=== PATIENT | male | born 1980 | race Caucasian/White ===

== ENCOUNTER → 2020-09-15 08:25 | Outpatient (CLI) | payer BC, SELFPAY ==
[2020-09-15 09:08] LABS: Basophils # 0.1 K/mm3 (0-0.2); Basophils % 1.2 % (0.1-2.0); Eosinophils # 0.2 K/mm3 (0.0-0.4); Eosinophils % 2.7 % (0.1-12.0); Hematocrit 48.6 % (42.0-52.0); Hemoglobin 16.2 g/dL (14.1-18.0); Lymphocytes # 1.2 K/mm3 (0.7-4.5); Lymphocytes % 20.5 % (10-50); Mean Corpuscular HGB Conc 33.3 g/dL (31.8-35.4); Mean Corpuscular Volume 95.9 fl (80-94); Mean Platelet Volume 8.4 fl (7.4-10.4); Monocytes # 0.4 K/mm3 (0.1-1.0); Monocytes % 6.8 % (1.7-9.3); Neutrophils # 3.9 K/mm3 (1.8-7.8); Neutrophils % 68.8 % (37.0-80.0); Platelet Count 175 K/mm3 (142-424); Red Blood Count 5.07 M/mm3 (4.60-6.20); Red Cell Distribution Width 12.7 % (11.5-17.5); White Blood Count 5.6 K/mm3 (4.8-10.8)
[2020-09-15 10:20] LABS: Alanine Aminotransferase 22 U/L (12-78); Albumin Level 4.5 g/dl (3.5-5.0); Albumin/Globulin Ratio 1.9 (1.1-1.8); Alkaline Phosphatase 71 U/L (38-126); Anion Gap 11.7 mEq/L (5-15); Aspartate Amino Transferase 23 U/L (17-59); Bilirubin,Total 1.2 mg/dl (0.2-1.3); Blood Urea Nitrogen 19 mg/dl (9-20); Calcium 9.6 mg/dl (8.4-10.2); Carbon Dioxide 32 mmol/L (22.0-30.0); Chloride 102 mmol/L (98-107); Chol/HDL Ratio 3.7 (1-3.5); Cholesterol 187 mg/dl (140-200); Estimated Glomerular Filt Rate 75 ml/min (>60); GFR (African American) 90 ML/MIN (>60); Globulin 2.4 g/dL (1.3-3.2); Glucose 76 mg/dl (74-100); HDL Cholesterol 51 mg/dl (40-60); Potassium 4.7 mmoL/L (3.5-5.1); Sodium 141 mmol/L (136-145); Total Protein,Serum 6.9 g/dl (6.3-8.2); Triglycerides 94 mg/dl (30-150); VLDL Cholesterol 19 mg/dL (0-40)
[2020-09-15 10:31] LABS: Direct LDL Cholesterol 114.73 mg/dL (100-129)
== END ==
PROVIDERS: Visit Provider Nurse Practitioner Family
DX: Z00.00 Encounter for general adult medical examination without abnormal findings (principal)
CPT/HCPCS: 36415; 80053; 80061; 85025

== ENCOUNTER → 2020-11-09 09:20 | Outpatient (CLI) | payer BC, SELFPAY | PROVIDERS: Visit Provider Urology | DX: Z20.822 Contact with and (suspected) exposure to COVID-19 (principal) | CPT/HCPCS: C9803; U0003; U0005 ==

== ENCOUNTER 2020-11-11 09:14 | Day surgery (SDC) | payer BC, SELFPAY ==
[2020-11-09 10:26] VITALS: BMI 22.4
[2020-11-11 09:30] VITALS: BP 132/72; PULSE 56; RESP 16; TEMP 36.5; O2SAT 99
[2020-11-11 10:30] VITALS: BP 106/82; PULSE 67; RESP 18; TEMP 36.6; O2SAT 98
--- NOTE | 2020-11-11 16:30 | [facility].OPNOTE ---
Date of procedure: 11/11/20 Pre-op Diagnosis:: Sterilization Post-op Diagnosis:: Sterilization Procedure performed:: Vasectomy Surgeon:: Semaj Peralta MD Anesthesia: local Estimated blood loss (mL): 2 Clinical Note:: 40-year-old white male was seen in the office for vasectomy consultation and presents for the procedure today under local anesthetic. Operative findings:: Patient with normal phallus and scrotal, testicles of normal size and shape without abnormalities. Operative note:: Patient taken to the operating suite after informed consent was obtained. On the stretcher he was prepped and draped in the standard surgical fashion. Testicular examination was within normal limits. The left vas was palpated and brought up to the midline raphae. Local anesthetic was placed under the skin and around the left VATS. Incision was then made in the midline raphae and a tenaculum was used to grasp the vas and brought up through the incision. The basal sheath was then incised and the vas proper was dissected free of its surrounding adventitial tissue. One clip was placed distally and two proximally. A 1 cm segment of the vas was excised and the basal lumens were cauterized. Hemostasis achieved and the vas dropped back into the left hemiscrotum. The right vas was brought up through the incision and local anesthetic placed. Identical procedure was performed of the right vas. After hemostasis the vas dropped back into the right hemiscrotum and a 3-0 chromic placed in the skin in a horizontal mattress fashion. Compression dressing applied and jockstrap placed. Patient tolerated procedure well there are no complications. Condition: stable Disposition: same day Specimens:: Vas segments were not sent Complications:: None
== END 2020-11-11 10:40 | disposition home or self-care (01) ==
LOC: OUTP 09:16
PROVIDERS: PCP Nurse Practitioner Family; Visit Provider Urology
PROC: (CPT 55250; principal; 2020-11-11 10:15)
DX: Z30.2 Encounter for sterilization (principal)
CPT/HCPCS: 55250

== ENCOUNTER → 2021-06-18 12:52 | Outpatient (CLI) | payer BC, SELFPAY ==
--- NOTE | 2021-06-18 12:57 | XR_ITS ---
PROCEDURE INFORMATION: Exam: XR Right Wrist Exam date and time: 06/18/2021 12:58 PM Age: 40 years old Clinical indication: Injury or trauma; Other: Cow smashed patient's right wrist. ; Blunt trauma (contusions or hematomas); Patient HX: Cow ran into gate. Patient got his right wrist smashed. ; Additional info: Wrist pain. TECHNIQUE: Imaging protocol: XR Right wrist. Views: 3 or more views. COMPARISON: [id number] HAND-RT 3 VIEWS 02/01/2015 8:43 AM FINDINGS: Bones/joints: There is a redemonstration of a 5 mm bone island of the distal radius at the cortical interface. There is no evidence of fracture. Soft tissues: Normal. IMPRESSION: There is no evidence of fracture.
== END ==
PROVIDERS: PCP Nurse Practitioner Family; Visit Provider Nurse Practitioner Family
DX: M25.531 Pain in right wrist (principal); G89.11 Acute pain due to trauma
CPT/HCPCS: 73110